=== PATIENT | male | born 1985 | race Caucasian/White ===

== ENCOUNTER 2023-03-23 10:30 | Inpatient (IN) | payer MEDICAID ==
[~2023-03-23] VITALS: Ht 165.1 cm; Wt 80.7 kg
[2023-03-23 10:39] VITALS: BP 106/66
--- NOTE | 2023-03-23 11:15 | NUR ---
37YO M PRESENTS W/ABSCESS TO RT SIDE OF NECK X 1 1/2 MTH, PT STATES HE WAS SENT HERE BY DR. Irby FOR 1PM SURGERY. HX:DENIES BRIGIDAA
[2023-03-23 11:48] LABS: BASOPHILS % (AUTO) 0.3 % (0.0-2.0); EOSINOPHILS # (AUTO) 0.1 K/uL (0-0.4); EOSINOPHILS % (AUTO) 1.4 % (0.0-4.0); HEMOGLOBIN 14.2 g/dL (12.0-18.0); LYMPHOCYTES # (AUTO) 1.7 K/uL (2.0-11.5); LYMPHOCYTES % (AUTO) 31.7 % (20.5-51.1); MEAN CORPUSCULAR HEMOGLOBIN 29 pg (27-31); MEAN CORPUSCULAR HGB CONC 34 g/dL (33-37); MEAN CORPUSCULAR VOLUME 85.7 fL (80-94); MONOCYTES # (AUTO) 0.5 K/uL (0.8-1.0); MONOCYTES % (AUTO) 8.8 % (1.7-9.3); NEUTROPHILS # (AUTO) 3.1 K/uL (1.8-7.7); NEUTROPHILS % (AUTO) 57.8 % (42.2-75.2); PLATELET COUNT (AUTO) 216 K/uL (140-450); RED BLOOD CELL COUNT(AUTO) 4.91 MIL/uL (4.20-6.10); RED CELL DISTRIBUTION WIDTH 13.9 % (11.6-13.7); WHITE BLOOD COUNT (AUTO) 5.4 K/uL (4.8-10.8)
[2023-03-23 12:01] LABS: ALBUMIN 4.4 g/dL (3.4-5.0); CARBON DIOXIDE 30.4 mmol/L (21-32); POTASSIUM 4.4 mmol/L (3.5-5.1); TOTAL BILIRUBIN 0.8 mg/dL (0.0-1.0)
[2023-03-23] MEDS ORDERED: MORPHINE SULFATE 4 MG/ML SYR IVP PRN (12:35)
[2023-03-23] MEDS ORDERED: MORPHINE SULFATE 2 MG/ML SYR IVP PRN (12:35)
--- NOTE | 2023-03-23 12:41 | NUR ---
RECEIVED ADMIT WRITTEN ORDERS . ORDERS CARRIED OUT
[2023-03-23] MEDS ORDERED: ceFAZolin 1,000 MG VIAL ONE (13:00)
[2023-03-23] MEDS ORDERED: KETOROLAC 30 MG/ML VIAL ONE ×2 (13:00→14:36)
[2023-03-23] MEDS ORDERED: ATROPINE 0.4 MG/ML VIAL ONE ×2 (13:00→14:30)
[2023-03-23] MEDS ORDERED: ONDANSETRON 4 MG/2 ML VIAL ONE ×2 (13:00→14:36)
[2023-03-23] MEDS ORDERED: PROPOFOL 200 MG/20 ML VIAL IV ONE ×3 (13:00→14:29)
[2023-03-23] MEDS ORDERED: SEVOFLURANE 250 ML BTL INH ONE (13:00)
[2023-03-23] MEDS ORDERED: BUPIVACAINE-MPF/EPI 0.25% 10 ML VIAL INJ ONE (13:24)
[2023-03-23] MEDS ORDERED: LIDOCAINE MPF 1% 5 ML ONE ×2 (13:25→13:26)
[2023-03-23] MEDS ORDERED: NACL 0.9% 1,000 ML IV SCH ×2 (14:15→15:00)
[2023-03-23] MEDS ORDERED: HYDROcodone/APAP 7.5/325 MG 1 TAB PO PRN (14:15)
[2023-03-23] MEDS ORDERED: ONDANSETRON 4 MG/2 ML VIAL IVP PRN (14:15)
[2023-03-23] MEDS ORDERED: MAG SULF 2000 MG/WATER PREMIX 50 ML IV PRN (14:15)
[2023-03-23] MEDS ORDERED: POTASSIUM CHLORIDE 10 MEQ TABER PO PRN (14:15)
[2023-03-23] MEDS ORDERED: ACETAMINOPHEN 325 MG TAB PO PRN (14:15)
[2023-03-23] MEDS ORDERED: SUCCINYLCHOLINE CHLORIDE 200 MG/10 ML VIAL IVP ONE (14:29)
[2023-03-23] MEDS ORDERED: LIDOCAINE MPF 2% 100 MG/5 ML VIAL INJ ONE (14:30)
[2023-03-23 14:51] LABS: AMYLASE 55 U/L (25-115); CHOL/HDL RATIO 2.1 (1-4.5); FREE T4 (FREE THYROXINE) 0.76 ng/dL (0.76-1.46); HDL CHOLESTEROL 71 mg/dL (40-60); LDL (CALC) 69 mg/dL (60-100); LIPASE 67 U/L (73-393); MAGNESIUM 1.8 mg/dL (1.8-2.4); PHOSPHORUS 3.5 mg/dL (2.5-4.9); THYROID STIMULATING HORMONE 0.65 uIU/mL (0.34-3.74); TRIGLYCERIDES 47 mg/dL (30-150)
[2023-03-23] MEDS ORDERED: LABETALOL 20 MG/4 ML VIAL IVP PRN (14:58)
[2023-03-23] MEDS ORDERED: METOCLOPRAMIDE 10 MG/2 ML INJ VIAL IVP PRN (14:59)
[2023-03-23] MEDS ORDERED: hydrALAZINE 20 MG/ML VIAL IVP PRN (14:59)
[2023-03-23] MEDS ORDERED: HYDROmorphone 1 MG/ML AMP IVP PRN (15:00)
[2023-03-23] MEDS ORDERED: LACTATED RINGERS 1,000 ML IV SCH (15:00)
--- NOTE | 2023-03-23 15:05 | NUR ---
PATIENT HAS BEEN SCREENED AND CATEGORIZED LOW NUTRITION RISK. PATIENT WILL BE SEEN WITHIN 7 DAYS OF ADMISSION. 03/30/[address]
[2023-03-23] MEDS ORDERED: DOCUSATE SODIUM 100 MG GELCAP PO SCH (21:00)
[2023-03-24] MEDS ORDERED: PANTOPRAZOLE 40 MG INJ VIAL IVP SCH (09:00)
== END 2023-03-23 16:29 | disposition home or self-care (01) | DRG 89 ==
LOC: MED 10:30 → MMU 12:41
PROC: 0NBT0ZZ Excision of Right Mandible, Open Approach (ICD-10-PCS; principal; 2023-03-23 13:00)
DX: M27.2 Inflammatory conditions of jaws (principal); F12.90 Cannabis use, unspecified, uncomplicated; L72.3 Sebaceous cyst; R22.1 Localized swelling, mass and lump, neck; Z20.822 Contact with and (suspected) exposure to COVID-19
CPT/HCPCS: 36415; 76536; 80053; 82140; 82150; 83036; 83605; 83690; 83735; 83880; 84100; 84439; 84443; 84484; 85025; 85610; 85730; 86886; 86900; 86901; 88304; 99285; J0330; J0461; J0690; J1885; J2001; J2405; J2704; J3490; Q0092